=== PATIENT | female | born 1950 | race Caucasian/White ===

== ENCOUNTER 2025-07-31 10:07 | Emergency (ER) | payer MEDICARE, BC ==
[2025-07-31 11:26] LABS: #Basophils Less than 0.03 10x3/uL (0.0-0.2); #Eosinophils 0.05 10x3/uL (0.0-0.5); #Monocytes 0.21 10x3/uL (0.0-1.1); #Neutrophils 4.46 10x3/uL (1.5-8.4); %Basophils 0.4 % (0.0-2.0); %Eosinophils 0.9 % (0.0-6.0); %Lymphocytes 15.2 % (18.0-47.0); %Monocytes 3.7 % (0.0-10.0); %Neutrophils 79.4 % (40.0-75.0); Hematocrit 36.8 % (34.9-44.5); Hemoglobin 12.1 g/dL (12.0-15.5); Mean Corpuscular Hemoglobin 29.1 pg (27.0-33.0); Mean Corpuscular Volume 88.5 fL (81.6-98.3); Platelet Count 271 10x3/uL (150-450); Red Blood Cell (RBC) Count 4.16 10x6/uL (3.90-5.03); White Blood Cell (WBC) Count 5.61 10x3/uL (3.5-10.5)
[2025-07-31 11:37] LABS: Glucose, Urine (Dipstick) Normal (Negative); Leukocyte 25 (Negative); Protein, Urine (Dipstick) Negative (Neg-Trace); Specific Gravity, Urine 1.010 (1.005-1.030)
[2025-07-31 11:39] LABS: ALT (SGPT) 60 U/L (Less than 34); AST (SGOT) 60 U/L (11-34); Albumin 3.7 g/dL (3.1-4.5); Alkaline Phosphatase 83 U/L (40-110); Anion Gap 16 mmol/L (10-20); BUN (Urea Nitrogen) 12 mg/dL (9.8-20.1); Bilirubin, Total 0.8 mg/dL (0.3-1.2); Calc. Creatinine Clearance 0 mL/min (70-130); Calcium 9.6 mg/dL (7.8-10.44); Carbon Dioxide 24 mmol/L (23-31); Chloride 106 mmol/L (98-107); Globulin 4.5 g/dL (2.4-3.5); Glucose 92 mg/dL (83-110); Potassium 4.1 mmol/L (3.5-5.1); Sodium 142 mmol/L (136-145)
[2025-07-31 11:51] LABS: Bacteria/HPF Rare-Few HPF (None Seen); CAUTI Indications for Culture Pelvic or flank pain; RBC/HPF None Seen HPF (0-3); Urine Culture Reflex No No; WBC/HPF 0-3 HPF (0-3)
[2025-07-31] MEDS ORDERED: Iopamidol 300 61% 100 ML VIAL FS ONE (12:56)
[2025-07-31] MEDS ORDERED: Mineral Oil ENEMA ONE ×2 (13:17→14:40)
== END 2025-07-31 16:22 | disposition home or self-care (01) ==
LOC: CSHERS 10:07
DX: K59.00 Constipation, unspecified (principal); R10.32 Left lower quadrant pain; E78.5 Hyperlipidemia, unspecified; I10 Essential (primary) hypertension; Z79.899 Other long term (current) drug therapy
CPT/HCPCS: 74177; 80053; 81001; 85025; Q9967

== ENCOUNTER 2025-08-02 12:42 | Outpatient (CLI) | payer MEDICARE, BC | END 2025-08-02 12:43 | disposition home or self-care (01) | LOC: CSHULT 12:42 | PROVIDERS: ATTEND Internal Medicine Hematology & Oncology | DX: C56.1 Malignant neoplasm of right ovary (principal); I08.0 Rheumatic disorders of both mitral and aortic valves | CPT/HCPCS: 93306 ==